=== PATIENT | female | born 1990 | race Asian ===

== ENCOUNTER 2024-10-28 12:14 | Emergency (ER) | payer OTHER ==
[~2024-10-28] VITALS: Ht 165.1 cm; Wt 54.0 kg
[2024-10-28 12:17] VITALS: O2SAT 100
[2024-10-28] MEDS: HYDROCODONE/ACETAMINOPHEN 5/325MG TABLET PO STA (13:00)
[2024-10-28] MEDS: BACITRACIN ZINC OINT UDPKT TOP ONE (13:01)
[2024-10-28] MEDS: TETANUS, DIPHTHERIA, PERTUSSIS VAC/PF 0.5ML (>10YR OLD) IM ONE (13:01)
[2024-10-28] MEDS: IBUPROFEN 600MG TABLET PO STA (13:01)
[2024-10-28] MEDS ORDERED: CYCL10TA21 MT (16:17)
[2024-10-28] MEDS ORDERED: IBUP-2029 MT (16:17)
[2024-10-28] MEDS ORDERED: T3 PO (16:25)
[2024-10-28 16:59] VITALS: BP 128/74; PULSE 98; RESP 19; TEMP 37.00296; O2SAT 100
== END 2024-10-28 17:11 | disposition home or self-care (01) ==
LOC: ER 12:32
DX: S00.83XA Contusion of other part of head, initial encounter (principal); M54.2 Cervicalgia; R07.89 Other chest pain; M25.511 Pain in right shoulder; E04.1 Nontoxic single thyroid nodule; Z85.9 Personal history of malignant neoplasm, unspecified; V49.59XA Passenger injured in collision with other motor vehicles in traffic accident, initial encounter; Y93.89 Activity, other specified; Y92.89 Other specified places as the place of occurrence of the external cause; Y99.8 Other external cause status
CPT/HCPCS: 70486; 71045; 73030; 73590; 81025; 90471; 90715; 99285